=== PATIENT | male | born 1990 | race Caucasian/White ===

== ENCOUNTER 2023-03-27 14:56 | Outpatient (CLI) | payer BC, SELFPAY | END 2023-03-27 14:57 | disposition home or self-care (01) | PROVIDERS: PCP Family Medicine; Visit Provider Family Medicine | DX: Z00.00 Encounter for general adult medical examination without abnormal findings (principal); E78.00 Pure hypercholesterolemia, unspecified; Z76.89 Persons encountering health services in other specified circumstances | CPT/HCPCS: 80053; 80061 ==

== ENCOUNTER 2023-07-20 19:39 | Outpatient (CLI) | payer BC, SELFPAY ==
--- NOTE | 2023-08-25 10:13 | W.PM.SLEEP ---
Sleep Study Details Details Interpreting Provider: Miranda Romo Date of Sleep Study: 07/20/23 Sleep Study Details: STUDY TYPE:? Home unattended ? BMI:? 36.5 ORDERING PROVIDER:? Anyi INDICATION:? Concerns about sleep apnea ? SLEEP SUMMARY:? 422.6 minutes monitored RESPIRATORY SUMMARY:? AHI 3.4, supine 14.4, left lateral 2.4, prone 2.1, right lateral 0.9 Low oxygen 87 0.1% of study oxygen less than 90% Snoring 81.3% PERIODIC LIMB MOVEMENTS OF SLEEP:? Not record CARDIAC:? Range 47-91, mean 62.6 IMPRESSION:? This study overall is within normal limits however the patient has mild apnea in the supine position RECOMMENDATION: Patient should avoid supine sleep.
== END 2023-07-20 19:40 | disposition home or self-care (01) ==
LOC: SLEEP 19:40
PROVIDERS: PCP Family Medicine; Visit Provider Otolaryngology
DX: G47.30 Sleep apnea, unspecified (principal); G47.10 Hypersomnia, unspecified; R06.83 Snoring
CPT/HCPCS: 95806

== ENCOUNTER 2023-09-25 09:44 | Day surgery (SDC) | payer BC, SELFPAY ==
[2023-09-25] VITALS (11 sets, daily range): BP systolic 110–124; BP diastolic 62–82; PULSE 73–83; RESP 14–18; TEMP 36.2–36.9; O2SAT 95–97; BMI 33.6
[2023-09-25] MEDS: SCOPOLAMINE 1 MG/3 DAY PATCH 1 PATCH TRANSDERMA (10:15)
[2023-09-25] MEDS: LACTATED RINGERS 1000 ML 1,000 ML 100 ML IV (10:20)
[2023-09-25] MEDS: BUPIVACAINE 0.5%/EPINEPHRINE 0.9 MG (30.9 ML) INJECTION (10:50)
[2023-09-25] MEDS: COCAINE HCL 4 % 4 ML SOLUTION NOSTRIL-B (10:51)
[2023-09-25] MEDS: MUPIROCIN 1 GM PACKET 1 APPLIC TOPICAL (10:51)
[2023-09-25] MEDS: AYR SALINE NASAL GEL 1 APPLIC NOSTRIL-B (10:52)
--- NOTE | 2023-09-25 11:16 | W.PM.ENTPROC ---
Procedure Note Date of procedure: 09/25/23 Surgeon: Dutch De Santiago MD
--- NOTE | 2023-09-25 11:16 | W.ANESCHARGE ---
Anesthesia Charges Start Date/Time Anesthesia Start Date: 09/25/23 Anesthesia Start Time: 10:35 Stop Date/Time Anesthesia Stop Date: 09/25/23 Anesthesia Stop Time: 11:15
--- NOTE | 2023-09-25 11:18 | W.PM.ENTPROC ---
Procedure Note Date of procedure: 09/25/23 Procedure: Preoperative diagnosis nasal obstruction, deviated septum, right inferior turbinate hypertrophy Postoperative diagnosis same Procedure nasal septoplasty, submucous partial resection right inferior turbinate Under general trach anesthesia patient was prepped draped usual fashion the nose decongested with cocaine pledgets and then injected. There is a large inferior left bone spur in areas 2 and 3. The mucosa overlying this was elevated on either side and it was removed with sharp and blunt dissection. A chisel was used to remove the bony portion. The flap was then laid back down the septum appeared midline. A stab incision was made in the anterior the right inferior turbinate a conservative anterior submucous resection performed with Salvador forceps. The Coblation was used for hemostasis and to cauterize intramurally along the inferior 10% to the posterior aspect which had undergone polypoid degeneration. Merocel pack was placed in each side nose. The patient procedure well was taken recovery in satisfactory condition blood loss was less than 25 mL. Surgeon: Dutch De Santiago MD
--- NOTE | 2023-09-25 11:42 | W.ANESCHARGE ---
Anesthesia Charges Start Date/Time Anesthesia Start Date: 09/25/23 Anesthesia Start Time: 10:35 Stop Date/Time Anesthesia Stop Date: 09/25/23 Anesthesia Stop Time: 11:15
--- NOTE | 2023-09-25 12:21 | SUR.PHASEII ---
Patient verbalizes he feels ready to be discharged. Alert and oriented, no pain, denies any nausea. Discharge Education complete with spouse at the bedside.
== END 2023-09-25 12:31 | disposition home or self-care (01) ==
LOC: OR 09:45
PROVIDERS: PCP Family Medicine; Visit Provider Otolaryngology
PROC: (CPT 30520; principal; 2023-09-25 11:00)
DX: J34.2 Deviated nasal septum (principal); J34.3 Hypertrophy of nasal turbinates; J34.89 Other specified disorders of nose and nasal sinuses
CPT/HCPCS: 30520; 30140; 00160; A9270; J0330; J1100; J2250; J2405; J2704; J3010; J7120